=== PATIENT | female | born 1950 | race Caucasian/White ===

== ENCOUNTER → 2016-11-12 | Outpatient (CLI) | payer OTHER | LOC: BMCIMAGING 08:12 | DX: Z12.31 Encounter for screening mammogram for malignant neoplasm of breast (principal) | CPT/HCPCS: G0202 ==

== ENCOUNTER → 2017-12-04 | Outpatient (CLI) | payer OTHER | LOC: BMCIMAGING 08:51 | PROVIDERS: ATTEND Podiatrist Foot & Ankle Surgery | DX: M24.174 Other articular cartilage disorders, right foot (principal); M89.371 Hypertrophy of bone, right ankle and foot ==